=== PATIENT | male | born 1975 | race African-American/Black ===

== ENCOUNTER 2021-03-30 20:49 | Emergency (ER) | payer BC, OTHER ==
[~2021-03-30] VITALS: Ht 195.6 cm; Wt 78.0 kg
[~2021-03-30 20:49] MED LIST: ALBU2TAB44; METH4TAB17 PO
[2021-03-30] MEDS ORDERED: CEPH500C2 MT (23:45)
[2021-03-30] MEDS ORDERED: MED4 MT (23:45)
[2021-03-30] MEDS ORDERED: TC025C15 TP (23:45)
[2021-03-30] MEDS ORDERED: HYDR-459 MT (23:45)
[2021-03-30 23:58] VITALS: BP 145/82
== END 2021-03-30 23:59 | disposition home or self-care (01) ==
LOC: ER 20:49
DX: L03.116 Cellulitis of left lower limb (principal); Z79.899 Other long term (current) drug therapy
CPT/HCPCS: 99282

== ENCOUNTER 2024-01-25 06:19 | Inpatient (IN) | payer SELFPAY ==
[~2024-01-25] VITALS: Ht 195.6 cm; Wt 71.9 kg
[~2024-01-25 06:19] MED LIST changes: -ALBU2TAB44; +CEPH500C2 MT; +HYDR-459 MT; +MED4 MT; -METH4TAB17 PO; +TC025C15 TP
[2024-01-25 08:34] LABS: BASOPHILS % 0.8 % (0.0-2.0); EOSINOPHILS % 5.5 % (0.0-5.0); HEMOGLOBIN. 13.9 g/dL (14.0-18.0); LYMPHOCYTES % 21.1 % (20.0-50.0); MEAN CORPUSCULAR HEMOGLOBIN 32.2 pg (28.0-32.0); MEAN CORPUSCULAR HGB CONC 34.6 g/dL (31.0-37.0); MEAN CORPUSCULAR VOLUME 93.1 fL (80.0-94.0); MEAN PLATELET VOLUME 8.8 fl (7.4-10.4); MONOCYTES % 9.8 % (2.0-8.0); NEUTROPHILS % 62.8 % (40.0-76.0); PLATELET 321 x1000/uL (130-400); RED CELL DISTRIBUTION WIDTH 13.1 % (11.6-14.6); WHITE BLOOD COUNT 8.1 x1000/uL (4.5-11.0)
[2024-01-25 08:38] LABS: CHLORIDE 104 mEq/L (98-107); POTASSIUM 4.5 mEq/L (3.5-5.1); SODIUM 137 mEq/L (136-145)
[2024-01-25 08:40] LABS: CALCIUM 9.1 mg/dL (8.7-10.4); CARBON DIOXIDE 30 mEq/L (21-32)
[2024-01-25 08:44] LABS: CREATININE 0.8 mg/dL (0.6-1.3); GLUCOSE 83 mg/dL (70-105); UREA NITROGEN BLOOD 9 mg/dL (9-23)
[2024-01-25 08:55] LABS: CLARITY URINE CLOUDY (CLEAR); COLOR URINE YELLOW (YELLOW); GLUCOSE URINE NEGATIVE (NEGATIVE); KETONES URINE NEGATIVE (NEGATIVE); LEUKOCYTE ESTERASE URINE NEGATIVE (NEGATIVE); NITRITE URINE NEGATIVE (NEGATIVE); OCCULT BLOOD URINE NEGATIVE (NEGATIVE); PH URINE 6.5 (4.5-8.0); PROTEIN URINE NEGATIVE (NEGATIVE); SPECIFIC GRAVITY URINE 1.019 (1.005-1.030); UROBILINOGEN URINE 0.2 E.U./dL (0.2-1.0)
[2024-01-25 09:19] LABS: PROTHROMBIN TIME 11.1 sec (9.6-11.0)
[2024-01-25 09:19] LABS: BACTERIA URINE FEW; RBC URINE 0-2 /hpf (0-2); SQUAMOUS EPITHELIAL CELL URINE FEW /lpf (RARE/1+); WBC URINE 0-2 /hpf (0-2); YEAST URINE NONE SEEN
[2024-01-25] MEDS: IOHEXOL-300 100 ML BOTTLE ONE (10:03)
[2024-01-25] MEDS ORDERED: CLINDAMYCIN 600 MG in DEXTROSE 5% WATER 50 ML IV ONE (10:30)
[2024-01-25] MEDS: CLINDAMYCIN 600MG PREMIX 50 ML IV NR (11:44)
[2024-01-25] MEDS: VANCOMYCIN 1.5GM/250ML 250 ML IV SCH (13:57)
[2024-01-25] MEDS ORDERED: PIPERACILLIN/TAZO 3.375G/50ML 50 ML IV SCH (14:00)
[2024-01-25] MEDS ORDERED: ONDANSETRON HCL 4MG/2ML INJ IV PRN (14:30)
[2024-01-25] MEDS ORDERED: CLONIDINE 0.1MG TABLET PO PRN (14:30)
[2024-01-25] MEDS ORDERED: MAGNESIUM/ALUMINUM HYDROXIDE/SIMETHICONE 30ML UDC PO PRN (14:30)
[2024-01-25] MEDS ORDERED: ACETAMINOPHEN 325MG TABLET PO PRN (14:30)
[2024-01-25] MEDS ORDERED: GUAIFENESIN 200MG/10ML SUGAR FREE UDC PO PRN (14:30)
[2024-01-25 14:45] VITALS: BP 144/90; PULSE 65; RESP 16; TEMP 97.8
[2024-01-25] MEDS: POLYETHYLENE GLYCOL 3350 (17GM) 1 DOSE PACK PO SCH (15:40)
[2024-01-25] MEDS: ENOXAPARIN 40MG/0.4ML SYR SUBCUT SCH (15:42)
[2024-01-25 16:00] VITALS: BP 146/88; PULSE 63; RESP 15; TEMP 98.3
[2024-01-25] MEDS: SENNOSIDES/DOCUSATE SOD 8.6/50MG TABLET PO SCH (17:19)
[2024-01-25 19:33] VITALS: BP 138/95; PULSE 67; RESP 12; TEMP 97.9
[2024-01-25] MEDS: DEXT 5%/0.45% NACL 1000ML 1,000 ML IV SCH (19:46)
[2024-01-25 19:47] VITALS: PULSE 71; RESP 20; O2SAT 97
[2024-01-25] MEDS: IPRATROPIUM/ALBUTEROL 0.5-3(2.5)MG/3ML NEB NEB PRN (19:47)
[2024-01-25] MEDS: MAGNESIUM HYDROXIDE 400MG/5ML 30ML UDC PO PRN (22:23)
[2024-01-26 00:08] VITALS: BP 119/85; PULSE 65; RESP 16; TEMP 98.2
[2024-01-26] MEDS: NA PHOS,M-B/NA PHOS,DI-BA ENEMA 118ML PR PRN (02:50)
[2024-01-26 04:24] VITALS: BP 141/94; PULSE 62; RESP 12; TEMP 97.6
[2024-01-26 06:58] LABS: BASOPHILS % 0.7 % (0.0-2.0); EOSINOPHILS % 6.4 % (0.0-5.0); HEMATOCRIT. 40.8 % (42.0-52.0); LYMPHOCYTES % 19.1 % (20.0-50.0); MEAN CORPUSCULAR HEMOGLOBIN 31.9 pg (28.0-32.0); MEAN CORPUSCULAR HGB CONC 34.3 g/dL (31.0-37.0); MEAN CORPUSCULAR VOLUME 93.2 fL (80.0-94.0); MEAN PLATELET VOLUME 9.1 fl (7.4-10.4); MONOCYTES % 13.7 % (2.0-8.0); NEUTROPHILS % 60.1 % (40.0-76.0); PLATELET 279 x1000/uL (130-400); RED BLOOD CELL COUNT 4.38 mill/uL (4.7-6.1); WHITE BLOOD COUNT 6.8 x1000/uL (4.5-11.0)
[2024-01-26 07:00] LABS: CARBON DIOXIDE 26 mEq/L (21-32); CHLORIDE 105 mEq/L (98-107); SODIUM 137 mEq/L (136-145)
[2024-01-26] MEDS ORDERED: GENTAMICIN 80MG PREMIX 100 ML IV SCH (07:00)
[2024-01-26 07:05] LABS: CREATININE 0.8 mg/dL (0.6-1.3); GLUCOSE 97 mg/dL (70-105)
[2024-01-26 07:06] LABS: UREA NITROGEN BLOOD 9 mg/dL (9-23)
[2024-01-26] MEDS ORDERED: ONDANSETRON HCL 4MG/2ML INJ ONE (07:36)
[2024-01-26] MEDS ORDERED: FENTANYL CITRATE/PF 50MCG/ML 2ML VIAL ONE ×2 (07:36→08:59)
[2024-01-26] MEDS ORDERED: MIDAZOLAM HCL 2 MG/2 ML VIAL ONE (07:36)
[2024-01-26] MEDS ORDERED: LIDOCAINE HCL/PF 1% 10 MG/ML 5ML VIAL ONE (07:36)
[2024-01-26] MEDS ORDERED: DEXAMETHASONE 4MG/ML 1ML VIAL ONE (07:36)
[2024-01-26] MEDS ORDERED: PROPOFOL 200MG/20ML VIAL IV ONE ×2 (07:36→07:37)
[2024-01-26] MEDS ORDERED: BUPIVACAINE HCL/PF 0.25% (2.5MG/ML) 10ML ONE (07:41)
[2024-01-26] MEDS ORDERED: ROCURONIUM BROMIDE 10MG/ML VIAL 5ML IV ONE (07:42)
[2024-01-26] MEDS ORDERED: POLYMYXIN B SULFATE 500000 UNITS/VIAL ONE (07:42)
[2024-01-26 08:00] VITALS: BP 119/85; PULSE 65; RESP 16; TEMP 98.2
[2024-01-26] MEDS ORDERED: ALBUTEROL 6.7GM HFA INHALER ONE (08:17)
[2024-01-26] MEDS: ALBUTEROL (0.083%) 2.5MG/3ML NEB HHN NR (08:30)
[2024-01-26] MEDS ORDERED: HYDROMORPHONE HCL/PF 2MG/ML CPJ IV PRN (08:30)
[2024-01-26] MEDS ORDERED: ONDANSETRON HCL 4MG/2ML INJ IV PRN (08:30)
[2024-01-26] MEDS ORDERED: FENTANYL CITRATE/PF 50MCG/ML 2ML VIAL IV PRN (08:30)
[2024-01-26] MEDS ORDERED: BACITRACIN 14GM TUBE TOP ONE (09:22)
[2024-01-26 12:00] VITALS: BP 119/85; PULSE 75; RESP 20; TEMP 98
[2024-01-26] MEDS: ACETAMINOPHEN 325MG TABLET PO PRN (15:22)
[2024-01-26 20:00] VITALS: BP 144/98; PULSE 68; RESP 15; TEMP 97.9
[2024-01-27] VITALS: BP 125/76; PULSE 66; RESP 13; TEMP 98.4
[2024-01-27 04:27] VITALS: BP 147/98; PULSE 72; RESP 12; TEMP 98.6
[2024-01-27 08:00] VITALS: BP 146/88; PULSE 74; RESP 20; TEMP 98.5
[2024-01-27 08:07] LABS: CALCIUM 9.6 mg/dL (8.7-10.4); CARBON DIOXIDE 23 mEq/L (21-32); CHLORIDE 106 mEq/L (98-107); POTASSIUM 3.9 mEq/L (3.5-5.1); SODIUM 137 mEq/L (136-145)
[2024-01-27 08:13] LABS: CREATININE 0.7 mg/dL (0.6-1.3); GLUCOSE 98 mg/dL (70-105); UREA NITROGEN BLOOD 10 mg/dL (9-23)
[2024-01-27 08:18] LABS: BASOPHILS % 0.4 % (0.0-2.0); HEMOGLOBIN. 12.9 g/dL (14.0-18.0); LYMPHOCYTES % 22.7 % (20.0-50.0); MEAN CORPUSCULAR HEMOGLOBIN 31.3 pg (28.0-32.0); MEAN CORPUSCULAR VOLUME 91.9 fL (80.0-94.0); MEAN PLATELET VOLUME 9.3 fl (7.4-10.4); MONOCYTES % 11.3 % (2.0-8.0); NEUTROPHILS % 64.6 % (40.0-76.0); PLATELET 288 x1000/uL (130-400); RED BLOOD CELL COUNT 4.14 mill/uL (4.7-6.1); RED CELL DISTRIBUTION WIDTH 12.7 % (11.6-14.6); WHITE BLOOD COUNT 10.3 x1000/uL (4.5-11.0)
[2024-01-27] MEDS ORDERED: WHEA152P PO (09:55)
[2024-01-27] MEDS ORDERED: SENN1TAB35 PO (09:58)
[2024-01-27 10:05] VITALS: BP 147/98; PULSE 72; TEMP 98.6; O2SAT 97
== END 2024-01-27 12:03 | disposition home or self-care (01) | DRG 483 ==
LOC: ER 06:19 → 5WST 11:26 → EDBEDREQ 11:34 → 3WST 14:02
PROVIDERS: ADMIT Internal Medicine; ATTEND Internal Medicine
PROC: 0VBB0ZZ Excision of Left Testis, Open Approach (ICD-10-PCS; principal; 2024-01-26)
DX: N45.4 Abscess of epididymis or testis (principal)
CPT/HCPCS: 36415; 74018; 74177; 76870; 80048; 81003; 83735; 84100; 85025; 87070; 87077; 87186; 93976; 94640; 99285; J1100; J1580; J1650; J2250; J2405; J2543; J2704; J3010; J3370; J3490; J7060; Q9967

== ENCOUNTER 2025-05-19 00:46 | Emergency (ER) | payer MEDICAID ==
[~2025-05-19] VITALS: Ht 190.5 cm; Wt 79.0 kg
[~2025-05-19 00:46] MED LIST changes: -MED4 MT; +METH4TAB95 MT; +SENN1TAB35 PO; +WHEA152P PO
[2025-05-19 00:51] VITALS: PULSE 87; RESP 20; O2SAT 99
[2025-05-19 01:16] VITALS: BP 150/100; TEMP 36.8; O2SAT 100
[2025-05-19] MEDS ORDERED: TC1C15 TP (02:03)
== END 2025-05-19 02:15 | disposition home or self-care (01) ==
LOC: ER 00:46
DX: L20.9 Atopic dermatitis, unspecified (principal)
CPT/HCPCS: 99283